=== PATIENT | female | born 1955 | race Caucasian/White ===

== ENCOUNTER → 2017-06-05 | Outpatient (CLI) | payer BC ==
[~2017-06-05] MED LIST: AMBIEN10 MG PO; ASPIRIN LO-DOSE81 MG PO; DILAUDID 2MG(HYD2 MG PO; ELAVIL10 MG PO; FISH OIL1000 MG PO; LEXAPRO10 MG PO; NEURONTIN100 MG PO; PREMARIN0.3 MG PO; SUPER B COMPLE1 EAC1 PO; THERA-VITE W/ B1 TAB PO; TOPAMAX25 MG PO; TYLENOL EXTRA500 MG PO; VALIUM5 MG PO
== END | disposition disaster alternative care site (69) ==
LOC: GRAD 06-01 14:00
DX: R91.1 Solitary pulmonary nodule (principal); R59.9 Enlarged lymph nodes, unspecified